=== PATIENT | female | born 1980 | race Caucasian/White ===

== ENCOUNTER 2025-01-24 10:16 | Outpatient (CLI) | payer MEDICARE, SELFPAY ==
--- NOTE | ~2025-01-24 | MM_ITS ---
EXAMINATION: MM screening dimitry BI w alejandro HISTORY: Screening TECHNIQUE: Craniocaudal and mediolateral oblique 3-D tomosynthesis images were obtained and synthetic 2-D images were generated. CAD analysis was submitted and interpreted. COMPARISON: No prior mammogram is available for comparison at this institution. BREAST PARENCHYMAL COMPOSITION: Dense: The breasts are extremely dense, which lowers the sensitivity of mammography. FINDINGS: There is no evidence of suspicious mass, calcification, or architectural distortion to sugg est malignancy in either breast. There has been no suspicious interval change. IMPRESSION: 1. No mammographic evidence of malignancy. 2. Recommend routine screening mammography in one year. BI-RADS Category 1: Negative Reviewed, dictated and finalized at location B.
--- OUTSIDE RECORDS SUMMARY | 2025-01-24 11:51 | XMS_ITS | Patient Health Record ---
Author Organization [facility] Address [address] [place] [address] Care Team Providers Care Sand Cutter Name Role Phone Daryl Densonolas Primary Care Provider Noemi Willingham Unavailable [phone] Allergies Allergen (clinical drug ingredient) Drug/Non Drug Allergy documented on EMR Reaction Allergy Type Onset Date Status SULFA rash Drug Allergy Active Results Component Value Reference Range Notes Hemoglobin A1c* Reviewed date:04/14/2024 03:23:00 PM Interpretation: Performing Lab:[facility], [address] [facility], Phone - [phone], Director - Manjit Notes/Report: Hemoglobin A1c 5.7 4.8-5.6 % . Prediabetes: 5.7 - 6.4 Diabetes: >6.4 Glycemic control for adults with diabetes: <7.0 CBC With Differential/Platel et* Reviewed date:04/14/2024 03:23:00 PM Interpretation: Performing Lab:[facility], [address] [facility], Phone - [phone], Director - Manjit Notes/Report: WBC 5.7 3.4-10.8 x10E3/uL RBC 4.56 3.77-5.28 x10E6/uL Hemoglobin 12.7 11.1-15.9 g/dL Hematocrit 39.2 34.0-46.6 % MCV 86 79-97 fL MCH 27.9 26.6-33.0 pg MCHC 32.4 31.5-35.7 g/dL RDW 14.0 11.7-15.4 % Platelets 270 150-450 x10E3/uL Neutrophils 66 Not Estab. % Lymphs 20 Not Estab. % Monocytes 8 Not Estab. % Eos 5 Not Estab. % Basos 1 Not Estab. % Neutrophils (Absolute) 3.7 1.4-7.0 x10E3/uL Lymphs (Absolute) 1.1 0.7-3.1 x10E3/uL Monocytes(Absolute) 0.5 0.1-0.9 x10E3/uL Eos (Absolute) 0.3 0.0-0.4 x10E3/uL Baso (Absolute) 0.1 0.0-0.2 x10E3/uL Immature Granulocytes 0 Not Estab. % Immature Grans (Abs) 0.0 0.0-0.1 x10E3/uL CMP 14 Comprehensive Metabol ic Panel* Reviewed date:04/14/2024 03:23:00 PM Interpretation: Performing Lab:[facility] [place], [address] [facility], Phone - [phone], Director - Manjit Notes/Report: Glucose 83 70-99 mg/dL BUN 15 6-24 mg/dL Creatinine 0.76 0.57-1.00 mg/dL eGFR 100 >59 mL/min/1.73 BUN/Creatinine Ratio 20 9-23 Sodium 139 134-144 mmol/L Potassium 4.2 3.5-5.2 mmol/L Chloride 104 96-106 mmol/L Carbon Dioxide, Total 22 20-29 mmol/L Calcium 9.4 8.7-10.2 mg/dL Protein, Total 7.0 6.0-8.5 g/dL Albumin 4.2 3.9-4.9 g/dL Globulin, Total 2.8 1.5-4.5 g/dL A/G Ratio 1.5 1.2-2.2 Bilirubin, Total 0.5 0.0-1.2 mg/dL Alkaline Phosphatase 109 44-121 IU/L AST (SGOT) 9 0-40 IU/L ALT (SGPT) 11 0-32 IU/L TSH+Free T4* Reviewed date:04/14/2024 03:23:00 PM Interpretation: Performing Lab:[facility] [place], [address] [facility], Phone - [phone], Director - PhDKayla Notes/Report: TSH 0.997 0.450-4.500 uIU/mL T4,Free(Direct) 1.02 0.82-1.77 ng/dL Lipid Panel* Reviewed date:04/14/2024 03:23:00 PM Interpretation: Performing Lab:[facility] [place], [address] [facility], [place], Phone - [phone], Director - Manjit Notes/Report: Cholesterol, Total 185 100-199 mg/dL Triglycerides 54 0-149 mg/dL HDL Cholesterol 45 >39 mg/dL VLDL Cholesterol Wilmer 10 5-40 mg/dL LDL Chol Calc ([facility]) 130 0-99 mg/dL Reason For Referral No Information Medications Medication SIG (Take, Route, Frequency, Duration) Notes Start Date End Date Status Escitalopram Oxalate 20 MG Take 1 tablet by mouth once daily for 90 Active Flonase 50 MCG/ACT 1 spray in each nostril Nasally Once a day for 30 day(s) 09/11/2021 Not-Taking Colace 100 MG 1 capsule as needed Orally Once a day for 30 day(s) 09/24/2017 Not-Taking Antihistamine Active Immunizations Vaccine Route Administration Date Status Comme nts FLU VAC NO PRSV 4VAL 6 mo+ IM Intramuscular 09/11/2021 Administered PT [employer] Flu vaccine no Preserv 3 and > Unknown 08/04/2017 Administered Received documentation that pt received Fluzone and TDap on 08/04/17. See pt documents. Tdap Unknown 08/04/2017 Administered Received documentation that pt received Fluzone and TDap on 08/04/17. See pt documents. Social History Tobacco Use: Social History Observation Description Date Details (start date - stop date) Never Smoker NA - NA Sex Assigned At : Social History Observation Description Sex Assigned At Female Dont use, Tobacco Use/Smoking Question Answer Notes Are you a nonsmoker Tobacco Control (Standard) Question Answer Notes Tobacco use: Nonsmoker Problems Problem Type SNOMED Code ICD Code Onset Dates Problem Status W/U Status Risk Notes Problem 798155972 Developmental delay (R62.50) Active confirmed Problem 71536247 Depression, unspecified depression type (F32.9) 6 Active confirmed Problem 215860191 Vaginal bleeding (N93.9) Active confirmed Problem 448984521700828 Obesity (BMI 30.0-34.9) (E66.9) Active confirmed Problem 37963788 Constipation, unspecified constipation type (K59.00) Active confirmed Problem 535189990 Abnormal mammogram of left breast (R92.8) Active confirmed Vital Signs Heart Rate 70 /min 05/17/2024 Temperature 98.4 degrees Fahrenheit 05/17/2024 Respiratory Rate 16 /min 05/17/2024 Blood pressure diastolic 86 mm Hg 05/17/2024 Oximetry 98 % 05/17/2024 Height 58.25 in 05/17/2024 Blood pressure systolic 110 mm Hg 05/17/2024 Weight 149 lb 4 oz lbs 05/17/2024 BMI 30.92 kg/m2 05/17/2024 Encounters Encounter Location Date Provider Diagnosis [address] [place] [address] 04/12/2024 Xander Denson Screening for metabolic disorder Z13.228 ; Prediabetes R73.03 ; Screening for deficiency anemia Z13.0 and Lipid screening Z13.[address] [place] [address] 04/12/2024 Xander Denson Wellness examination Z00.00 ; Prediabetes R73.03 ; Screening for deficiency anemia Z13.0 ; Screening for metabolic disorder Z13.228 ; Lipid screening Z13.220 ; Obesity (BMI 30.0-34.9) E66.9 and Nutritional counseling Z71.3 [address] [place] [address] 05/17/2024 Noemi Willingham Adult general medical examination Z00.00 and Nutritional counseling Z71.3 Assessments Encounter Date Diagnosis (ICD Code) Assessment Notes Treatment Notes Treatment Clinical Notes Section Notes 04/12/2024 Wellness examination (ICD-10 - Z00.00) 04/12/2024 Prediabetes (ICD-10 - R73.03) 04/12/2024 Screening for metabolic disorder (ICD-10 - Z13.228) 05/17/2024 Adult general medical examination (ICD-10 - Z00.00) Medically cleared to participate in special [employer] without restriction 05/17/2024 Nutritional counseling (ICD-10 - Z71.3) 04/12/2024 Screening for deficiency anemia (ICD-10 - Z13.0) 04/12/2024 Prediabetes (ICD-10 - R73.03) 04/12/2024 Screening for metabolic disorder (ICD-10 - Z13.228) 04/12/2024 Screening for deficiency anemia (ICD-10 - Z13.0) 04/12/2024 Lipid screening (ICD-10 - Z13.220) 04/12/2024 Lipid screening (ICD-10 - Z13.220) 04/12/2024 Obesity (BMI 30.0-34.9) (ICD-10 - E66.9) 04/12/2024 Nutritional counseling (ICD-10 - Z71.3) Plan Of Treatment No Information Insurance Providers Payer Name Payer Address Payer Phone Subscriber Number Group Number Insured Name Patient Relationship to Insured Coverage Start Date Coverage End Date [facility] Attn Claims Department [address] [place] [address] [phone] [id number] LeGate, Raquel Self - patient is the insured 7 3 MEDICARE PART A [address] [place] [address] [id number] LeGate, Raquel Self - patient is the insured [address] [place] [address] [id number] LeGate, Raquel Self - patient is the insured 3 [facility] Attn Claims Department [address] [place] [address] [id number] LeGate, Raquel Self - patient is the insured 0 3 Medical (General) History Medical History History ICD Code mild intelectual disability Depression, unspecified depression type Developmental delay Constipation, unspecified constipation t ype Obesity (BMI 30.0-34.9) History of partial hysterectomy Z90.711 Surgical History Surgery Date(Month/Year) PARTIAL HYSTERECTOMY 2012 Hospitalization History Reason Date(Month/Year) Depression in high school [facility] - depression in high school
--- OUTSIDE RECORDS SUMMARY | 2025-01-24 11:51 | XMS_ITS ---
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 Medications Medication SIG (Take, Route, Frequency, Duration) Notes Start Date End Date Status Flonase 50 MCG/ACT 1 spray in each nostril Nasally Once a day for 30 day(s) 09/11/2021 Not-Taking Escitalopram Oxalate 20 MG Take 1 tablet by mouth once daily for 90 Active Colace 100 MG 1 capsule as needed Orally Once a day for 30 day(s) 09/24/2017 Not-Taking Antihistamine Active Social History Tobacco Use: Social History Observation Description Date Details (start date - stop date) Never Smoker NA - NA Sex Assigned At : Social History Observation Description Sex Assigned At Female Tobacco Control (Standard) Question Answer Notes Tobacco use: Nonsmoker Vital Signs Weight 149 lb 4 oz lbs 05/17/2024 Height 58.25 in 05/17/2024 BMI 30.92 kg/m2 05/17/2024 Blood pressure systolic 110 mm Hg 05/17/20 24 Blood pressure diastolic 86 mm Hg 024 Heart Rate 70 /min 05/17/2024 Oximetry 98 % 05/17/2024 Temperature 98.4 degrees Fahrenheit 07/09/20 24 Respiratory Rate 16 /min 05/17/2024 Encounters Encounter Location Date Provider Diagnosis [facility] [address] [place] [address] 05/17/2024 Noemi Willingham Adult general medical examination Z00.00 and Nutritional counseling Z71.3 Assessments Encounter Date Diagnosis (ICD Code) Assessment Notes Treatment Notes Treatment Clinical Notes Section Notes 05/17/2024 Adult general medical examination (ICD-10 - Z00.00) Medically cleared to participate in special [employer] without restriction 05/17/2024 Nutritional counseling (ICD-10 - Z71.3) Plan Of Treatment Treatment Notes Assessment Notes Adult general medical examination Medica lly cleared to participate in special [employer] without restriction Next Appt Details Follow Up: prn, Reason: Progress Notes * Raquel ROGERSDOB:1980 (43 yo F)Acc No.[id number]:05/17/2024 Patient: Bernabe AIDATanika QUEZADAcy Provider: Shukri Willingham APRN :1980 A ge:43 Y S ex:Female Date:05/17/2024 Address:[address] [place], [place] [id number] Pcp:Xander Denson Subjective: * Chief Complaints: * s ees Mauro--needs physical for special [employer] * HPI: D epression Screening: PHQ-9 L ittle interest or pleasure in doing things N ot at all, F eeling down, depressed, or hopeless N ot at all, T rouble falling or staying asleep, or sleeping too much N ot at all, F eeling tired or having little energy N ot at all, P oor appetite or overeating N ot at all, F eeling bad about yourself or that you are a failure, or have let yourself or your family down N ot at all, T rouble concentrating on things, such as reading the newspaper or watching television N ot at all, M oving or speaking so slowly that other people could have noticed; or the opposite, being so fidgety or restless that you have been moving around a lot more than usual N ot at all, T houghts that you would be better off or of hurting yourself in some way N ot at all, T otal Score 0 . I ntervention D epression Screening Findings N egative. S creening: Cass Suicide Severity Rating Scale (LF) D o you want to initiate with S creener form, 1 . Wish to be : Have you wished you were or wished you could go to sleep and not wake up? N o, 2 . Suicidal Thoughts: Have you actually had any thoughts of killing yourself? N o, 6 . Suicide Behaviour: Have you ever done anything,started to do anything, or prepared to end your life? N o, I nterpretation: L ow Risk. S ummary: 43 year old present for physical for physical to compete in [employer]. Pt. denies CP, SOB. No restrictions noted on PE that would prevent patient from participating in Special [employer]. Vision exam attempted with both Alphabet and picture card, vision for both attmepts 20/200 left and right eyes with corrective glasses. Pt. and helper Bernadette were advised to f/u with Oil Well Service Operator for thorough vision exam. P reventative Health and Wellness follow-up: Action Plans for Clinical Quality Measures: C ervical Cancer Screening: D iscussed need for cervical cancer screening. Patient declined.. . C SSRS Interpretation and Follow Up Plan: CSSRS Interpretation and Follow Up Plan. CSSRS Interpretation and Follow Up Plan C SSRS Screen documented using SF Y es, M oderate or High risk requires selection of a follow up plan C SSRS No/Low: intervention not needed at this time. * ROS: G eneral/Constitutional: Denies C hange in appetite. D enies C hills. D enies F atigue. D enies F ever. D enies H eadache. D enies W eight loss.? R espiratory: Denies D yspnea. C ardiovascular: Denies E cornelius. D enies C hest pain. D enies?Claudication. G astrointestinal: Denies A bdominal pain. A dmits C onstipation. D enies N ausea. G enitourinary: urinary problems Denies. M usculoskeletal: Patient denies m usculoskeletal concerns. S kin: Denies R niels. * Medical History: * Surgical History: P ARTIAL HYSTERECTOMY 2012 * Hospitalization/Major Diagno stic Procedure: [facility] - depression in high schoolDepression in high school * Family History: F ather: alive. M other: alive. 2 sister(s) - healthy. . Mom is diagnosed with Schizophrenia and client does not have any contact with her. paternal grandfather - diabetes. * Social History: P rimary Social History: L iving Arrangement L iving Arrangement: I ndependent Living, I s this a supportive environment? Y es. A lcohol Use A lcohol Use Frequency: N ever. I llicit Substance Usage I llicit Substance Usage: N o. E mployment Status E mployment Status:?Employed [employer]. T obacco Use: T obacco Control (Standard) T obacco use: N onsmoker. * Medications: T akingAntihistamine Escitalopram Oxalate 20 MG Tablet Take 1 tablet by mouth once daily Taking Antihistamine Taking Escitalopram Oxalate 20 MG Tablet Take 1 tablet by mouth once daily Not-TakingColace 100 MG Capsule 1 capsule as needed Orally Once a day Flonase 50 MCG/ACT Suspension 1 spray in each nostril Nasally Once a day Medication List reviewed and reconciled with the patientNot-Taking Colace 100 MG Capsule 1 capsule as needed Orally Once a day Not-Taking Flonase 50 MCG/ACT Suspension 1 spray in each nostril Nasally Once a day Medication List reviewed and reconciled with the patient * Allergies: S ULFA: rash - Allergyno[Allergies Verified] Objective: * Vitals: I nitials: hp, Wt:149 lb 4 oz, Ht:58.25, BMI:30.92, BP:110/86, HR:70, Oxygen sat %:98, Temp:98.4, RR:16, LMP: hysto. * Examination: G eneral Examination: GENERAL APPEARANCE: a lert, oriented, well developed, well nourished, in no acute distress, calm and relaxed, cooperative. EYES: P ERRLA, sclera and conjunctiva clear. EARS a uditory canal clear, tympanic membrane intact, clear, light reflex present. NOSE: n gian patent, no lesions, septum intact. ORAL CAVITY: m ucosa moist. THROAT: n o erythema, no exudate, pharynx normal. NECK/THYROID: n o cervical lymphadenopathy, no thyromegaly.? LYMPH NODES: n o lymphadenopathy. SKIN: w arm and dry, no rashes. HEART: r egular rate and rhythm, no murmurs. LUNGS: r espirations regular and easy, clear to auscultation bilaterally. ABDOMEN: b owel sounds present, soft, nontender, nondistended, no masses palpable, no organomegaly . MUSCULOSKELETAL: n o joint deformity, swelling, redness, or warmth, no joint pain, erythema, edema, KYM upper and lower extremities. PERIPHERAL PULSES: 2 + radial. NEUROLOGIC: c ranial nerves 2-12 grossly intact, gait normal, deep tendon reflexes 2+ symmetrical, no tremor, able to follows direction, speech is clear, face is symmetrical. Assessment: * Assessment: 1. A dult general medical examination - Z00.00 (Primary) 2 . N utritional counseling - Z71.3 Plan: * Treatment: * Recommended Wellness and Pre vention Guidelines: * S tatus A lert L ast Done N ext Due A ction Taken N ONCOMPLIANT A lcohol use screening - 0 05/17/2024 - N ONCOMPLIANT A llergy List Verification - 0 05/17/2024 - N ONCOMPLIANT B reast cancer screening 0 11/14/2021 0 05/17/2024 - N ONCOMPLIANT C ervical cancer screening 0 12/21/2018 0 05/17/2024 - N ONCOMPLIANT H IV screening - 0 05/17/2024 - * Procedure Codes: 3 008F BODY MASS INDEX [id number] MEDICAL NUTRITION, INDIV, [id number] TOBACCO NON-USER * Preventive Medicine: Counseling: C are goal follow-up plan: B LA management provided Y Maura sam Normal BMI Follow-up L ifestyle education regarding diet. * Follow Up: p rn * * Sign off status: Completed true * Provider: Shukri Willingham APRN Date: 0 05/17/2024 Generated for Radha fischer/Crispin/eTsuleimanitting on: 0 01/24/2025 11:51 AM CDT History and Physical Notes * HPI (History of Present Illness) Category Sub-Category Detail Notes Category Not es Depression Screening PHQ-9 Little inte rest or pleasure in doing things: Not at all Feeling down, depressed, or hopeless: No t at all Trouble falling or staying asleep, or sl eeping too much: Not at all Feeling tired or having little energy: N ot at all Poor appetite or overeating: Not at all Feeling bad about yourself o r that you are a failure, or have let yourself or your family down: Not at all Trouble concentrating on thi ngs, such as reading the newspaper or watching television: Not at all Moving or speaking so slowly that other people could have noticed; or the opposite, being so fidgety or restless that you have been moving around a lot more than usual: Not at all Thoughts that you would be b tre off or of hurting yourself in some way: Not at all Total Score: 0 Intervention Depression Screening Findings: N egative Summary 43 year old present for physical for physical to compete in [employer]. Pt. denies CP, SOB. No restrictions noted on PE that would prevent patient from participating in [employer]. Vision exam attempted with both Alphabet and picture card, vision for both attmepts 20/200 left and right eyes with corrective glasses. Pt. and helper Bernadette were advised to f/u with [employer] Service Operator for thorough vision exam. Screening Cass Suicide Severity Rating Scale (LF) Do you want to initiate with: Screener form 1. Wish to be : Have you wished you were or wished you could go to sleep and not wake up?: No 2. Suicidal Thoughts: Have you actually had any thoughts of killing yourself?: No 6. Suicide Behavior Question: Have you ever done anything,started to do anything, or prepared to end your life?: No Interpretation:: Low Risk Do Not Use CSSRS Interpretation and Follow Up Plan CSSRS Interpretation and Follow Up Plan CSSRS Screen documented using SF: Yes Moderate or High risk requir es selection of a follow up plan: CSSRS No/Low: intervention not needed at this time Preventative Health and Wellness follow-up Action Plans for Clinical Quality Measures: Cervical Cancer Screening:: Discussed need for cervical cancer screening. Patient declined. . Examination Category Sub-Category Detail Notes Category Not es General Examination GENERAL APPEARANCE: alert, o riented, well developed, well nourished, in no acute distress, calm and relaxed, cooperative EYES: PERRLA, sclera and c onjunctiva clear EARS auditory canal clear , tympanic membrane intact, clear, light reflex present NOSE: nares patent, no les ions, septum intact THROAT: no erythema, no exud ate, pharynx normal NECK/THYROID: no cervical lymphade nopathy, no thyromegaly HEART: regular rate and rhy thm, no murmurs LUNGS: respirations regular and easy, clear to auscultation bilaterally ABDOMEN: bowel sounds present , soft, nontender, nondistended, no masses palpable, no organomegaly NEUROLOGIC: cranial nerves 2-12 grossly intact, gait normal, deep tendon reflexes 2+ symmetrical, no tremor, able to follows direction, speech is clear, face is symmetrical SKIN: warm and dry, no devin hes PERIPHERAL PULSES: 2+ radial MUSCULOSKELETAL: no joint deformity, swelling, redness, or warmth, no joint pain, erythema, edema, KYM upper and lower extremities LYMPH NODES: no lymphadenopathy ORAL CAVITY: mucosa moist
--- OUTSIDE RECORDS SUMMARY | 2025-01-24 11:51 | XMS_ITS | Clinical Summary ---
Author Organization [facility] Address [address] [place] [address] Care Team Providers Care Sleeve Ironer Name Role Phone Amelia Holloway RN Primary Care Provider Noel salazar Source Comments [facility],non-owned Affiliates and Associated Physician Practices is amultiple site organization consisting of ambulatory clinics and hospital sitesin [place], [place], [place] and [place]. This disclosure is being madepursuant to the Care Everywhere program and may not contain all information available regarding this patient. Last updated 18.[facility] Allergies Active Allergy Reactions Criticality Noted Date Comments Sulfa Drugs 12/18/2016 Medications * Be aware that medications may not be up to date on this document. Alwaysverify current medications with the patient. Medication Sig Dispensed Refills Start Date End Date Status escitalopram (LEXAPRO) 20 MG tablet Take 20 mg by mouth once daily Active fluticasone propionate (FLONASE) 50 MCG/ACT nasal sprayIndications:Acut e URI [place] 1 [place] into each nostril 2 times daily 1 Bottle 12/18/2016 Active Social History Tobacco Use Types Packs/Day Years Used Date Smoking Tobacco: Never Sex and Gender Information Value Date Recorded Sex Assigned at Not on file Gender Identity Not on file Sexual Orientation Not on file Last Filed Vital Signs Vital Sign Reading Time Taken Comments Blood Pressure 110/62 12/23/2016 5:13 PM [employer] Pulse 68 12/23/2016 5:13 PM [employer] Temperature 37 C (98.6 F) 12/23/2016 5:13 PM [employer] Respiratory Rate 16 12/23/2016 5:13 PM [employer] Oxygen Saturation 94% 12/23/2016 5:13 PM [employer] Inhaled Oxygen Concentration - - Weight 64.4 kg (142 lb) 12/23/2016 5:13 PM [employer] Height 147.3 cm (4' 10 ) 12/23/2016 5:13 PM [employer] Body Mass Index 29.68 12/23/2016 5:13 PM [employer] Plan of Treatment Health Maintenance Due Date Last Done Comments LIPID TESTING 1980 MAMMOGRAM 1980 HIV SCREENING 1996 HEPATITIS C SCREENING 08/28/1999 DTAP/TDAP/TD VACCINES (1 - Tdap) 2000 HEPATITIS B VACCINE (1 of 3 - 19+ 3-dose series) 2000 COVID-19 VACCINE (1 - 2023-2 5 season) 2024 INFLUENZA VACCINE (#1) 2024 DEPRESSION SCREENING 11/09/2024 ZOSTER VACCINE (1 of 2) 2031 HIB VACCINE Aged Out No longer eligi ble based on patient's age to complete this topic HPV VACCINE Aged Out No longer eligi ble based on patient's age to complete this topic MENINGOCOCCAL (Group B) VACC INE SHARED DECISION-MAKING Aged Out No longer eligibl e based on patient's age to complete this topic MENINGOCOCCAL GROUPS A/C/Y/W VACCINE Aged Out No longer eligible b ased on patient's age to complete this topic PNEUMOCOCCAL VACCINE Aged Out No long er eligible based on patient's age to complete this topic Care Teams Sleeve Ironer Relationship Specialty Start Date End Date Amelia Holloway, RN PCP - General 12/18/16
--- OUTSIDE RECORDS SUMMARY | 2025-01-24 11:51 | XMS_ITS ---
Author Organization [facility] Address [address] [place] [address] Care Team Providers Care Wardrobe Specialty Worker Name Role Phone Xander Denson Primary Care Provider [phone] Results Component Value Reference Range Notes Hemoglobin A1c* Reviewed date:04/14/2024 03:23:00 PM Interpretation: Performing Lab:[facility], [address] [facility], Phone - [phone], Director - [facility] Notes/Report: Hemoglobin A1c 5.7 4.8-5.6 % . Prediabetes: 5.7 - 6.4 Diabetes: >6.4 Glycemic control for adults with diabetes: <7.0 CBC With Differential/Platel et* Reviewed date:04/14/2024 03:23:00 PM Interpretation: Performing Lab:[facility], [address] [facility], Phone - [phone], Director - [facility] Notes/Report: WBC 5.7 3.4-10.8 x10E3/uL RBC 4.56 [...] % Immature Grans (Abs) 0.0 0.0-0.1 x10E3/uL TSH+Free T4* Reviewed date:04/14/2024 03:23:00 PM Interpretation: Performing Lab:[facility] [address], Phone - [phone], Director - [facility] Notes/Report: TSH 0.997 0.450-4.500 uIU/mL T4,Free(Direct) 1.02 0.82-1.77 ng/dL Lipid Panel* Reviewed date:04/14/2024 03:23:00 PM Interpretation: Performing Lab:[facility] [place], [address] [place] [address], Phone - [phone], Director - [facility] Notes/Report: Cholesterol, Total 185 100-199 mg/dL Triglycerides 54 0-149 mg/dL HDL Cholesterol 45 >39 mg/dL VLDL Cholesterol Wilmer 10 5-40 mg/dL LDL Chol Calc (NIH) 130 0-99 mg/dL CMP 14 Comprehensive Metabol ic Panel* Reviewed date:04/14/2024 03:23:00 PM Interpretation: Performing Lab:[facility] [place], [address] [facility], Phone - [phone], Director - [facility] Notes/Report: Glucose 83 70-99 mg/dL BUN 15 [...] 0-40 IU/L ALT (SGPT) 11 0-32 IU/L Social History Sex Assigned At : Social History Observation Description Sex Assigned At Female Encounters Encounter Location Date Provider Diagnosis [address] [address] 04/12/2024 Xander Denson Screening for metabolic disorder Z13.228 ; Prediabetes R73.03 ; Screening for deficiency anemia Z13.0 and Lipid screening Z13.220 Assessments Encounter Date Diagnosis (ICD Code) Assessment Notes Treatment Notes Treatment Clinical Notes Section Notes 04/12/2024 Screening for metabolic disorder (ICD-10 - Z13.228) 04/12/2024 Prediabetes (ICD-10 - R73.03) 04/12/2024 Screening for deficiency anemia (ICD-10 - Z13.0) 04/12/2024 Lipid screening (ICD-10 - Z13.220) Plan Of Treatment No Information Progress Notes * Raquel ROGERSDOB:1980 (44 yo F)Acc No.[id number]:04/12/2024 UNLOCKED PROGRESS NOTE Patient: Raquel MATTHEWS Provider: Ramírez Denson, MSN, AGPCNP-BC :1980 A ge:43 Y S ex:Female Date:04/12/2024 Address:[facility] [address] [place], [address] Subjective: * Chief Complaints: * * Medical History: Objective: * Vitals: Assessment: * Assessment: 1. S creening for metabolic disorder - Z13.228 2 . P rediabetes - R73.03? 3. S creening for deficiency anemia - Z13.0 4 . L ipid screening - Z13.220 Plan: * Treatment: 2. P rediabetes L AB: Hemoglobin A1c* (Collection Date & Time - 04/12/2024) 3. S creening for deficiency anemia L AB: CBC With Differential/Platelet* (Collection Date & Time - 04/12/2024) 4. L ipid screening L AB: Lipid Panel* (Collection Date & Time - 04/12/2024) * * Electronic signature of Daryl Denson , BULL GANG WORKER, [phone] on 01/24/2025 at 11:51 AM CDT Sign off status: Pending * Provider: Ramírez Denson, MSN, AGPCNP-BC Date: 0 04/12/2024 Generated for Printing/Faxing/eTransmitting on: 0 01/24/2025 11:51 AM CDT
--- OUTSIDE RECORDS SUMMARY | 2025-01-24 11:51 | XMS_ITS | Clinical Summary ---
Author Organization [facility] Address [facility] [place] [address] Care Team Providers Care Pie Bottomer Name Role Phone None, Provider MD Primary Care Provider Unavaila ble Allergies Active Allergy Reactions Criticality Noted Date Comments Sulfamethoxazole-Trimethoprim Rash Low 2015 Medications escitalopram 20 MG tablet Take 20 mg by mouth daily. 1 07/14/2019 Active Social History Tobacco Use Types Packs/Day Years Used Date Smoking Tobacco: Never Smokeless Tobacco: Never Comments No Sex and Gender Information Value Date Recorded Sex Assigned at Not on file Legal Sex Female 8:12 PM CDT Gender Identity Not on file Sexual Orientation Not on file Last Filed Vital Signs Vital Sign Reading Time Taken Comments Blood Pressure 134/72 08/01/2019 4:25 PM CDT Pulse 66 08/01/2019 4:25 PM CDT Temperature 37.3 C (99.2 F) 08/01/2019 3:26 PM CDT Respiratory Rate 16 08/01/2019 4:25 PM CDT Oxygen Saturation 99% 08/01/2019 4:25 PM CDT Inhaled Oxygen Concentration - - Weight 65.8 kg (145 lb) 08/01/2019 3:26 PM CDT Height 147.3 cm (4' 10 ) 08/01/2019 3:26 PM CDT Body Mass Index 30.31 08/01/2019 3:26 PM CDT Plan of Treatment Health Maintenance Due Date Last Done Comments Annual Physical 1984 Hepatitis C 1999 Hepatitis B Vaccines (1 of 3 - 19+ 3-dose series) 2000 DTaP, Tdap and Td Vaccines ( 2 - Td or Tdap) 03/01/2019 03/01/2009 Mammogram Screening 2021 11/20/2015 COVID-19 Vaccine (1 - 2023-2 5 season) 2024 Influenza Adult (#1) 2024 Pneumococcal Vaccine: Pediat rics (0 to 5 Years) and At-Risk Patients (6 to 64 Years) Aged Out 03/01/2009 No longer eligi ble based on patient's age to complete this topic HPV Vaccines Aged Out No longer eligi ble based on patient's age to complete this topic Meningococcal B Vaccine Aged Out No l onger eligible based on patient's age to complete this topic Meningococcal Vaccine Aged Out No oj beulah eligible based on patient's age to complete this topic RSV Immunizations Under 20 Months Aged Out No longer eligible based on patient's age to complete this topic Procedures Procedure Name Priority Date/Time Associated Diagnosis Comments MG DIAGNOSTIC LAKESHIA DIGI Routine 11/20/2015 3:28 PM SAP BPC ARCHITECT from Last 3 Months or Most Recently Relevant to Health Maintenance Results * MG DIAGNOSTIC LAKESHIA DIGI (11/20/2015 3:28 PM SAP BPC ARCHITECT) Anatomical Region Laterality Modality Breast Bilateral Mammography 11/20/2015 3:28 PM SAP BPC ARCHITECT 11/20/2015 3:28 PM SAP BPC ARCHITECT Narrative 11/22/2015 10:11 AM SAP BPC ARCHITECT AQUILES ROGERS MD: YAYO MCCONNELL ACCT: [id number] ADMIT/SERVICE DATE: 11/20/15 DISCHARGE DATE: : 1980 PT TYPE: REG CLI SEX: F ORD SITE: [facility] STUDY DATE REPORT # ORDER # EXT ORDER ID 11/20/15 [id number] PROCEDURE CODE PROCEDURE DESCRIPTION DXMAMDIGBI MG DIAGNOSTIC MAMMO DIGITAL BI CHART DOCUMENT DIVISION OF RADIOLOGY ACCESSION # EXAM DATE EXAM DESCRIPTION [id number] 11/20/2015 MG DIAGNOSTIC MAMMO DIGITAL BI IMAGING STUDIES: BILATERAL DIAGNOSTIC MAMMOGRAM 11/20/2015 COMPARISON STUDIES: NO PREVIOUS AVAILABLE CLINICAL HISTORY: ABNORMAL CONTOUR RIGHT BREAST. TWO SKIN SORES ON THE LEFT BREAST. BILATERAL BREAST PAIN. BASELINE EXAM. DEVELOPMENTAL DELAY. FINDINGS: BILATERAL CC, MLO, ML AND SPOT COMPRESSION VIEWS OF THE RIGHT BREAST IN THE CC AND MLO PROJECTIONS OBTAINED. MODERATELY DENSE RESIDUAL FIBROGLANDULAR PARENCHYMA WITHOUT EVIDENCE OF ARCHITECTURAL DISTORTION, SKIN THICKENING, NIPPLE RETRACTION OR SUSPICIOUS CLUSTER OF MICROCALCIFICATIONS. NO UNDERLYING LESIONS NOTED WHERE THE SKIN MARKERS WERE PLACED IDENTIFYING THE SKIN SORES. ULTRASOUND EXAMINATION PERFORMED THE SAME DAY DEMONSTRATED NO UNDERLYING SUSPICIOUS SOLID OR CYSTIC LESIONS. IMPRESSION: BI-RADS CATEGORY 2. SCREEN MAMMOGRAPHY ACCORDING TO PATIENT'S AGE PER PROTOCOL RECOMMENDED. SA MAMMOGRAM CLASSIFICATION BI-RADS CATEGORY 0-NEED ADDITIONAL IMAGING EVALUATION BI-RADS CATEGORY 1-NEGATIVE BI-RADS CATEGORY 2-BENIGN FINDINGS BI-RADS CATEGORY 3-PROBABLY BENIGN FINDING-SHORT INTERVAL FOLLOW UP SUGGESTED BI-RADS CATEGORY 4-SUSPICIOUS ABNORMALITY-BIOPSY SHOULD BE CONSIDERED BI-RADS CATEGORY 5-HIGHLY SUGGESTIVE OF MALIGNANCY-APPROPRIATE ACTION SHOULD BE TAKEN A. A NEGATIVE REPORT SHOULD NOT DELAY A BIOPSY IF A DOMINANT OR CLINICALLY SUSPICIOUS MASS IS PRESENT. B. ADENOSIS AND DENSE BREASTS MAY OBSCURE AN UNDERLYING NEOPLASM. C. COMPUTER AIDED DETECTION UTILIZED IN THE INTERPRETATION OF THIS STUDY. ELECTRONICALLY SIGNED BY NERISSA PAREDES MD 11/22/2015 10:10 A MG/RC 11/20/201503:28 P 11/20/2015 05:01 P [facility] NO: [id number] DOC NO: [id number] CC: YAYO MCCONNELL NP Procedure Note Marian Santoro MD - 09/02/2018 AQUILES ROGERS ORDERING MD: YAYO MCCONNELL ANP ACCT: [id number] ADMIT/SERVICE DATE: 11/20/15 DISCHARGE DATE: : 1980 PT TYPE: REG CLI SEX: F ORD SITE: [facility] STUDY DATE REPORT # ORDER # EXT ORDER ID 11/20/15 [id number] PROCEDURE CODE PROCEDURE DESCRIPTION DXMAMDIGBI MG DIAGNOSTIC MAMMO DIGITAL BI CHART DOCUMENT DIVISION OF RADIOLOGY ACCESSION # EXAM DATE EXAM DESCRIPTION [id number] 11/20/2015 MG DIAGNOSTIC MAMMO DIGITAL BI IMAGING STUDIES: BILATERAL DIAGNOSTIC MAMMOGRAM 11/20/2015 COMPARISON STUDIES: NO PREVIOUS AVAILABLE CLINICAL HISTORY: ABNORMAL CONTOUR RIGHT BREAST. TWO SKIN SORES ON THE LEFT BREAST. BILATERAL BREAST PAIN. BASELINE EXAM. DEVELOPMENTAL DELAY. FINDINGS: BILATERAL CC, MLO, ML AND SPOT COMPRESSION VIEWS OF THE RIGHT BREAST INTHE CC AND MLO PROJECTIONS OBTAINED. MODERATELY DENSE RESIDUAL FIBROGLANDULAR PARENCHYMA WITHOUT EVIDENCE OF ARCHITECTURAL DISTORTION, SKIN THICKENING, NIPPLE RETRACTION ORSUSPICIOUS CLUSTER OF MICROCALCIFICATIONS. NO UNDERLYING LESIONS NOTED WHERE THESKIN MARKERS WERE PLACED IDENTIFYING THE SKIN SORES. ULTRASOUND EXAMINATION PERFORMED THE SAME DAY DEMONSTRATED NO UNDERLYING SUSPICIOUS SOLID OR CYSTIC LESIONS. IMPRESSION: BI-RADS CATEGORY 2. SCREEN MAMMOGRAPHY ACCORDING TO PATIENT'S AGE PER PROTOCOL RECOMMENDED. MQSA MAMMOGRAM CLASSIFICATION BI-RADS CATEGORY 0-NEED ADDITIONAL IMAGING EVALUATION BI-RADS CATEGORY 1-NEGATIVE BI-RADS CATEGORY 2-BENIGN FINDINGS BI-RADS CATEGORY 3-PROBABLY BENIGN FINDING-SHORT INTERVAL FOLLOW UP SUGGESTED BI-RADS CATEGORY 4-SUSPICIOUS ABNORMALITY-BIOPSY SHOULD BE CONSIDERED BI-RADS CATEGORY 5-HIGHLY SUGGESTIVE OF MALIGNANCY-APPROPRIATE ACTION SHOULD BE TAKEN A. A NEGATIVE REPORT SHOULD NOT DELAY A BIOPSY IF A DOMINANT ORCLINICALLY SUSPICIOUS MASS IS PRESENT. B. ADENOSIS AND DENSE BREASTS MAY OBSCURE AN UNDERLYING NEOPLASM. C. COMPUTER AIDED DETECTION UTILIZED IN THE INTERPRETATION OF THISSTUDY. 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
--- OUTSIDE RECORDS SUMMARY | 2025-01-24 11:51 | XMS_ITS ---
Author Organization [facility], [facility] Address [address] [place] [address] Care Team Providers Care Meat Wrapper Name Role Phone Xander Denson Primary Care Provider [phone] Allergies Allergen (clinical drug ingredient) Drug/Non Drug Allergy documented on EMR Reaction Allergy Type Onset Date Status SULFA rash Drug Allergy Active REASON FOR VISIT 6 month f/u Medications Medication SIG (Take, Route, Frequency, Duration) Notes Start Date End Date Status Flonase 50 MCG/ACT 1 spray in each nostril Nasally Once a day for 30 day(s) 09/11/2021 Not-Taking Antihistamine Active Colace 100 MG 1 capsule as needed Orally Once a day for 30 day(s) 09/24/2017 Not-Taking Escitalopram Oxalate 20 MG Take 1 tablet by mouth once daily for 90 Active Social History Tobacco Use: Social History Observation Description Date Details (start date - stop date) Never Smoker NA - NA Sex Assigned At : Social History Observation Description Sex Assigned At Female Tobacco Control (Standard) Question Answer Notes Tobacco use: Nonsmoker Vital Signs Weight 151 lbs 04/12/2024 Height 58.5 in 04/12/2024 BMI 31.02 kg/m2 04/12/2024 Blood pressure systolic 110 mm Hg 04/12/20 24 Blood pressure diastolic 72 mm Hg 024 Heart Rate 61 /min 04/12/2024 Oximetry 99 % 04/12/2024 Temperature 97.5 degrees Fahrenheit 04/12/20 24 Respiratory Rate 16 /min 04/12/2024 Encounters Encounter Location Date Provider Diagnosis [address] [place] [address] 04/12/2024 Xander Denson Wellness examination Z00.00 ; Prediabetes R73.03 ; Screening for deficiency anemia Z13.0 ; Screening for metabolic disorder Z13.228 ; Lipid screening Z13.220 ; Obesity (BMI 30.0-34.9) E66.9 and Nutritional counseling Z71.3 Assessments Encounter Date Diagnosis (ICD Code) Assessment Notes Treatment Notes Treatment Clinical Notes Section Notes 04/12/2024 Wellness examination (ICD-10 - Z00.00) 04/12/2024 Prediabetes (ICD-10 - R73.03) 04/12/2024 Screening for deficiency anemia (ICD-10 - Z13.0) 04/12/2024 Screening for metabolic disorder (ICD-10 - Z13.228) 04/12/2024 Lipid screening (ICD-10 - Z13.220) 04/12/2024 Obesity (BMI 30.0-34.9) (ICD-10 - E66.9) 04/12/2024 Nutritional counseling (ICD-10 - Z71.3) Plan Of Treatment Next Appt Details Follow Up: 6 Months,prn, Tarsha son: Progress Notes * Tanika ROGERSparthDOB:1980 (43 yo F)Acc No.[id number]:04/12/2024 Progress Notes Patient: Raquel MATTHEWS Provider: Ramírez Denson, MSN, AGPCNP-BC :1980 A ge:43 Y S ex:Female Date:04/12/2024 Address:[facility] [address], [address] [place], [place] [id number] 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 Denies any issues or concerns, doing well. General physical and screenings. I nterim History: Emergency room visit N o. D epression Screening: PHQ-9 L ittle interest or pleasure in doing things?Not at all F eeling down, depressed, or hopeless N ot at all T rouble falling or staying asleep, or sleeping too much N ot at all F eeling tired or having little energy N ot at all P oor appetite or overeating N ot at all F eeling bad about yourself or that you are a failure, or have let yourself or your family down N ot at all T rouble concentrating on things, such as reading the newspaper or watching television N ot at all M oving or speaking so slowly that other people could have noticed; or the opposite, being so fidgety or restless that you have been moving around a lot more than usual N ot at all T houghts that you would be better off or of hurting yourself in some way N ot at all T otal Score 0 S creening: [place] Suicide Severity Rating Scale (LF) D o you want to initiate with S creener form 1 . Wish to be : Have you wished you were or wished you could go to sleep and not wake up? N o 2 . Suicidal Thoughts: Have you actually had any thoughts of killing yourself? N o 6 . Suicide Behaviour: Have you ever done anything,started to do anything, or prepared to end your life? N o I nterpretation: L ow Risk C onstitutional: Health Literacy B ased on interaction with patient, assessed patient to have m oderate health literacy. * ROS: G eneral/Constitutional: Denies C hange in appetite. D enies C hills. D enies F ever. R espiratory: Denies D yspnea. D enies C ough. D enies W heezing. C ardiovascular: Denies E cornelius. D enies C hest pain. D enies?Claudication. G astrointestinal: Change in Stools D enies. D enies A bdominal pain.?Denies N ausea. M usculoskeletal: Patient denies a ny MSK issues. * Medical History: * Surgical History: P [...] iving Arrangement L iving Arrangement: I ndependent Living I s this a supportive environment? 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 * Examination: G eneral Examination: GENERAL APPEARANCE: w ell developed, well nourished, in no acute distress. SKIN: w arm and dry, no rashes. HEART: r egular rate and rhythm, no murmurs. LUNGS: r espirations regular and easy, clear to auscultation bilaterally. ABDOMEN: b owel sounds present, soft, nontender, nondistended, no masses palpable, no organomegaly . PSYCH: f ull range of affect/positive mood, good eye contact, speech clear, no auditory or visual hallucinations, thought content without suicidal ideation or delusions. Assessment: * Assessment: 1. W ellness examination - Z00.00 (Primary) 2 . P rediabetes - R73.03 3 . S creening for deficiency anemia - Z13.0 4 . S creening for metabolic disorder - Z13.228 5 .?Lipid screening - Z13.220 6 . O besity (BMI 30.0-34.9) - E66.9 7 . N utritional counseling - Z71.3 Plan: * Treatment: 2. S creening for deficiency anemia L AB: CBC With Differential/Platelet* (Ordered for 04/12/2024) (Collection Date & Time - 04/12/2024) 3. S creening for metabolic disorder L AB: TSH+Free T4* (Ordered for 04/12/2024) (Collection Date & Time - 04/12/2024) L AB: CMP 14 Comprehensive Metabolic Panel* (Ordered for 04/12/2024) (Collection Date & Time - 04/12/2024) 4. L ipid screening L AB: Lipid Panel* (Ordered for 04/12/2024) (Collection Date & Time - 04/12/2024) * Procedure Codes: 9 8960 SELF-MGMT EDUC & TRAIN, 1 [id number] BODY MASS INDEX [id number] MEDICAL NUTRITION, INDIV, [place] * Preventive Medicine: Counseling: C are goal follow-up plan: BMI management provided Y es Above Normal BMI Follow-up L ifestyle education regarding diet * Follow Up: 6 Months,prn * * Sign off status: Completed true * Provider: Ramírez Desnon, MSN, AGPCNP-BC Date: 0 04/12/2024 Generated for Printing/Faxing/eTransmitting on: 0 01/24/2025 11:50 AM CDT History and Physical Notes * HPI (History of Present Illness) Category Sub-Category Detail Notes Category Not es Interim History Emergency room visit No Depression Screening PHQ-9 Little inte rest or [...] way: Not at all Total Score: 0 Constitutional Health Literacy Based on interac tion with patient, assessed patient to have : moderate health literacy. Screening [place] Suicide Sev erity Rating Scale (LF) Do you want to [...] end your life?: No Interpretation:: Low Risk Examination Category Sub-Category Detail Notes Category Not es General Examination GENERAL APPEARANCE: well dev eloped, well nourished, in no acute distress HEART: regular rate and rhy thm, no murmurs LUNGS: respirations regular and easy, clear to auscultation bilaterally ABDOMEN: bowel sounds present , soft, nontender, nondistended, no masses palpable, no organomegaly SKIN: warm and dry, no devin hes PSYCH: full range of affect /positive mood, good eye contact, speech clear, no auditory or visual hallucinations, thought content without suicidal ideation or delusions
== END 2025-01-24 10:17 | disposition home or self-care (01) ==
PROVIDERS: Visit Provider Obstetrics & Gynecology
DX: Z12.31 Encounter for screening mammogram for malignant neoplasm of breast (principal)
CPT/HCPCS: 77063; 77067

== ENCOUNTER 2025-05-16 12:30 | Emergency (ER) | payer MEDICARE, MEDICAID, SELFPAY ==
[2025-05-16 12:40] VITALS: BP 131/81; PULSE 76; RESP 18; TEMP 36.9
--- NOTE | 2025-05-16 12:40 | ED.ABDPAIN ---
HPI - Abdominal Pain General Chief Complaint: Abdominal Pain Stated Complaint: HEADACHE/STOMACH PAIN/VOMITING Time Seen by Provider: 05/16/25 12:40 Source: patient Mode of arrival: ambulatory Limitations: no limitations History of Present Illness HPI narrative: Raquel is a 44-year-old developmentally disabled female patient presenting to the clinic today with complaints of headache, generalized abdominal pain/cramping and vomiting x1. She reports symptoms started this morning. No known fevers, chills, or body aches. States she is having some urinary frequency and urgency. Last bowel movement was yesterday and normal for the patient. Related Data Home Medications ?Medication ?Instructions ?Recorded ?Confirmed ?Last Taken ?Type escitalopram oxalate 20 mg tablet mg 05/16/25 Unknown History Allergies Allergy/AdvReac Type Severity Reaction Status Date / Time Sulfa (Sulfonamide Allergy Rash Verified 05/16/25 13:55 Antibiotics) Review of Systems Review of Systems: Pertinent positives per HPI. Patient denies any fever, chills, rash, headache, visual changes, dizziness, cough, shortness of breath, chest pain, palpitations, diarrhea, constipation, or any urinary issues. PMFSH Comments At the time of my signature, I reviewed and agree with the nursing past medical, surgical, social, and family history. There is no relevant family history pertinent to the patient complaint. Exam Narrative: General: Well-developed, well nourished, acute ill appearing. Head: Normocephalic, atraumatic Eyes: Pupils equally round and reactive to light bilaterally, EOM intact, sclera and conjunctive clear, no discharge, lids normal Ears: TMs intact and clear, ear canals clear, no drainage, grossly hearing normal. Nose: Nares patent, clear nasal discharge, no inflammation, no sinus tenderness. Mouth: Oral pharynx without lesions or masses, good dentition, MMM. Neck: Supple, trachea midline, no enlargement of anterior or posterior cervical nodes, no thyroid masses or goiter palpable. Cardio: Regular rate and rhythm, s1 and s2 normal, no murmur appreciated. Resp: Clear to auscultation bilaterally, no rhonchi, rales, wheezing or rubs Abdomen: Soft, pliable, bowel sounds present in all quadrants, generalized tender to palpation, no organomegly, no CVAT tenderness. Course Course Emergency Course: Portions of this record may have been created with voice recognition software. Level of Care: Express Care Visit Vital Signs Vital signs: Vital Signs Temperature 36.9 C 05/16/25 12:40 Pulse Rate 76 05/16/25 12:40 Respiratory Rate 18 05/16/25 12:40 Blood Pressure 131/81 05/16/25 12:40 Oxygen Delivery Room Air 05/16/25 12:40 Temperature 36.9 C 05/16/25 12:40 Pulse Rate 76 05/16/25 12:40 Respiratory Rate 18 05/16/25 12:40 Blood Pressure 131/81 05/16/25 12:40 Oxygen Delivery Room Air 05/16/25 12:40 Vital signs reviewed Transfer Transfered to: [facility] Transportation: Other (Private car) Transfer rationale: Generalized abdominal pain, nausea, and vomiting Accepting physician: Sami Transfer comments: Private car- NPO MDM - Abdominal Pain MDM Narrative Medical decision making narrative: At the time of visit patient is resting comfortably on the exam table. Patient appears to be nontoxic. Labs: Urinalysis positive for trace of protein. COVID and influenza testing was negative. Plan: Patient is having generalized abdominal pain, tearful, not acting appropriate per special needs child caregiver. Recommend transfer to the ER for further evaluation and caregiver and patient agree. Please like to go to [facility] emergency room. Contacted Sana physician's assistant professor of archaeology at [facility] ER report was given for continuity of care. Patient to go by private car- NPO Differential Diagnosis Differential diagnosis: Likely abdominal pain, acute appendicitis, calculus of kidney, constipation, diverticulitis, endometriosis, gastroenteritis, pancreatitis and small bowel obstruction Lab Data Labs: Lab Results 05/16/25 Range/Units 13:11 POC Urine Color Yellow POC Urine Clarity Cloudy POC Urine pH 8.5 POC Ur Specif [place] 1.020 POC Urine Protein Trace (Negative) POC Ur Glucose (UA) Negative (Negative) POC Urine Ketones Negative (Negative) POC Urine Blood Negative (Negative) POC Urine Nitrite Negative (Negative) POC Urine Bilirubin Negative (Negative) POC Urine Urobilinogen 0.2 POC U Leukocyte Esteras Negative (Negative) POC Influenza A Ag Negative (Negative) POC Influenza B Ag Negative (Negative) POC SARS CoV-2 Ag Negative (Negative) Discharge Plan Discharge Clinical Impression: Abdominal pain Qualifiers: Abdominal location: generalized Qualified Code(s): R10.84 - Generalized abdominal pain Patient Disposition: Acute Care Hospital Condition: Stable Patient Language: Citizen Of [place] Prescriptions: No Action escitalopram oxalate 20 mg tablet Follow-up/Referrals: Ziyad May MD [Primary Care Provider] - Time of Disposition: 13:22 Quality NIHSS Nursing Documentation ED NIHSS nursing documentation: reviewed/agree
[2025-05-16 13:13] LABS: EDCOVIDSCREEN Negative (Negative); EDINFLUASCREEN Negative (Negative); EDINFLUBSCREEN Negative (Negative); EDUAAPPEAR Cloudy; EDUABILI Negative (Negative); EDUABLOOD Negative (Negative); EDUACOLOR1 Yellow; EDUAGLUCOSE Negative (Negative); EDUAKETONE Negative (Negative); EDUALEUKO Negative (Negative); EDUANITRATE Negative (Negative); EDUAPH 8.5; EDUAPROTEIN Trace (Negative); EDUASPGRAVITY 1.020; EDUAUROBILI 0.2
== END 2025-05-16 13:20 | disposition short-term general hospital (02) ==
PROVIDERS: Emergency Provider Nurse Practitioner Family; PCP Internal Medicine
DX: R10.84 Generalized abdominal pain (principal); Z20.822 Contact with and (suspected) exposure to COVID-19; F32.A Depression, unspecified
CPT/HCPCS: 81003; 87426; 87804; 99212; 99213; G0463

== ENCOUNTER 2025-05-16 13:44 | Emergency (ER) | payer MEDICARE, MEDICAID, SELFPAY ==
--- NOTE | ~2025-05-16 | CT_ITS ---
EXAM: CT abdomen pelvis w con - 05/16/2025 15:25 CDT History: 44 years old Female with ABDOMINAL PAIN TECHNIQUE: Multidetector CT of the abdomen and pelvis with intravenous contrast. Coronal and sagitta l reformats were also provided for review. Automatic exposure control was used for this study. CONTRAST: 100 cc of Optiray 350 was used for this study. COMPARISON: None Available. FINDINGS: VISUALIZED CHEST: Visualized lungs are clear. ABDOMEN and PELVIS: LIVER: Within normal limits. GALLBLADDER: No calcified gallstones. BILE DUCTS: No dilatation. SPLEEN: Within normal limits. PANCREAS: Within normal limits. ADRENAL GLANDS: Within normal limits. KIDNEYS and URETERS: No hydronephrosis or hydroureter. No nephroureterolithiasis. URINARY BLADDER: Within normal limits. STOMACH and BOWEL: No abnormal bowel wall thickening. No obstruction. REPRODUCTIVE ORGANS: Within normal limits. MESENTERY/PERITONEAL CAVITY: No free fluid or pneumoperitoneum. LYMPH NODES: No abdominal or pelvic lymphadenopathy. ABDOMINAL WALL: Within normal limits. VASCULATURE: Within normal limits. MUSCULOSKELETAL: Within normal limits. IMPRESSION: No evidence of acute pathology in the abdomen and pelvis. Reviewed, dictated and finalized at location A.
--- OUTSIDE RECORDS SUMMARY | 2025-05-16 13:47 | XMS_ITS | Patient Health Record ---
Author Organization [facility] Address [address] [place] [address] Care Team Providers Care Personnel Interviewer Name Role Phone Ziyad May Primary Care Provider Noemi Willingham Unavailable [phone] Allergies Allergen (clinical drug ingredient) Drug/Non Drug Allergy documented on EMR Reaction Allergy Type Onset Date Status SULFA rash Drug Allergy Active Results Component Value Reference Range Notes Hemoglobin A1c CLIA Waived Reviewed date:02/21/2025 11:24:04 AM Interpretation: Performing Lab: Notes/Report: Hemoglobin A1c 5.5 4.0 - 6.4 % Hemoglobin A1c* Reviewed date:04/27/2025 03:51:09 PM Interpretation: Performing Lab:[facility], [address] [facility], Phone - [phone], Director - Manjit Notes/Report: Hemoglobin A1c 5.7 4.8-5.6 % . Prediabetes: 5.7 - 6.4 Diabetes: >6.4 Glycemic control for adults with diabetes: <7.0 Lipid Panel* Reviewed date:04/27/2025 03:51:09 PM Interpretation: Performing Lab:[facility], [address] [facility], Phone - [phone], Director - PhDKayla Notes/Report: Cholesterol, Total 192 100-199 mg/dL Triglycerides 57 0-149 mg/dL HDL Cholesterol 49 >39 mg/dL VLDL Cholesterol Wilmer 11 5-40 mg/dL LDL Chol Calc ([facility]) 132 0-99 mg/dL CMP 14 Comprehensive Metabol ic Panel* Reviewed date:04/27/2025 03:51:09 PM Interpretation: Performing Lab:[facility] [place], [address] [facility], [place], Phone - [phone], Director - Manjit Notes/Report: Glucose 75 70-99 mg/dL BUN 11 6-24 mg/dL Creatinine 0.79 0.57-1.00 mg/dL eGFR 95 >59 mL/min/1.73 BUN/Creatinine Ratio 14 9-23 Sodium 141 134-144 mmol/L Potassium 4.2 3.5-5.2 mmol/L Chloride 105 96-106 mmol/L Carbon Dioxide, Total 19 20-29 mmol/L Calcium 9.5 8.7-10.2 mg/dL Protein, Total 7.1 6.0-8.5 g/dL Albumin 4.3 3.9-4.9 g/dL Globulin, Total 2.8 1.5-4.5 g/dL Bilirubin, Total 0.3 0.0-1.2 mg/dL Alkaline Phosphatase 133 44-121 IU/L AST (SGOT) 18 0-40 IU/L ALT (SGPT) 14 0-32 IU/L Reason For Referral No Information Medications Medication SIG (Take, Route, Frequency, Duration) Notes Start Date End Date Status Docusate Sodium 100 MG 1 capsule as need ed Orally Once a day Active All Day Allergy 10 MG 1 tablet Orally On ce a day Active Antihistamine Not-Ta [facility] Adult Gummies - as directed Orally Active Escitalopram Oxalate 20 MG 1 tablet Oral ly Once a day; Duration: 30 days Active Flonase 50 MCG/ACT 1 spray in each nostril Nasally Once a day; Duration: 30 day(s) 09/11/2021 Not-Taking Colace 100 MG 1 capsule as needed Orally Once a day; Duration: 30 day(s) 09/24/2017 Not-Taking Immunizations Vaccine Route Administration Date Status Comme nts Tdap Unknown 08/04/2017 Administered Received documentation that pt received Fluzone and TDap on 08/04/17. See pt documents. Flu vaccine no Preserv 3 and > Unknown 08/04/2017 Administered Received documentation that pt received Fluzone and TDap on 08/04/17. See pt documents. FLU VAC NO PRSV 4VAL 6 mo+ IM Intramuscular 09/11/2021 Administered PT [employer] Social History Tobacco Use: Social History Observation Description Date Details (start date - stop date) Never Smoker NA - NA Sex Assigned At : Social History Observation Description Sex Assigned At Female Tobacco Control (Standard) Question Answer Notes Tobacco use: Nonsmoker Problems Problem Type SNOMED Code ICD Code Onset Dates Problem Status W/U Status Risk Notes Problem Hyperlipidemia (97021276) Hyperlipidemia (E78.5) Active confirmed Problem Developmental delay (086728451) Developmental delay (R62.50) Active confirmed Problem Overweight (193398083) Over weight (E66.3) Active confirmed Problem Depressive disorder (disorder) (64790939) Depression, unspecified depression type (F32.9) 10/15/20 16 Active confirmed Problem Vaginal bleeding (654546102) Vaginal bleeding (N93.9) Active confirmed Problem Obese class I (finding) (182581025654682) Obesity (BMI 30.0-34.9) (E66.9) Active confirmed Problem Constipation (92828897) Constipation, unspecified constipation type (K59.00) Active confirmed Problem Mammography abnormal (092444382) Abnormal mammogram of left breast (R92.8) Active confirmed Vital Signs Heart Rate 70 /min 04/25/2025 Temperature 98.4 degrees Fahrenheit 05/17/2024 Respiratory Rate 16 /min 04/25/2025 Oximetry 98 % 04/25/2025 Blood pressure diastolic 82 mm Hg 04/25/2025 Height 58.25 in 04/25/2025 Blood pressure systolic 118 mm Hg 04/25/2025 Weight 152.6 lbs 04/25/2025 BMI 31.62 kg/m2 04/25/2025 Encounters Encounter Location Date Provider Diagnosis [facility] [place] [address] 05/17/2024 Noemi Willingham Adult general medica l examination Z00.00 and Nutritional counseling Z71.[address] [place] [address] 02/21/2025 Ziyad May Impaired glucose tolerance R73.02 ; Hyperlipidemia E78.5 and Over weight E66.[address] [facility] [place] [address] 04/25/2025 Ziyad May Prediabetes R73.[address] [place] [address] 02/08/2025 Ziyad May [address] [place] [address] 02/10/2025 Ziyad May [address] [place] [address] 02/16/2025 Ziyad May [address] [place] [address] 02/22/2025 Ziyad May [address] [address] 02/28/2025 Ziyad May Assessments Encounter Date Diagnosis (ICD Code) Assessment Notes Treatment Notes Treatment Clinical Notes Section Notes 04/25/2025 Prediabetes (ICD-10 - R73.03) 05/17/2024 Adult general medical examination (ICD-10 - Z00.00) Medically cleared to participate in [employer] without restriction 02/21/2025 Hyperlipidemia (ICD-10 - E78.5) 02/21/2025 Impaired glucose tolerance (ICD-10 - R73.02) DISCUSSED ELIMINATING DRINKS THAT HAVE PROCESSED SUGAR, MINIMIZING FOODS WITH PROCESSED SUGAR OR FLOUR, EATING MORE FRUITS AND VEGETABLES. DISCUSSED WRAPS INSTEAD OF SANDWICHES, THIN CRUST INSTEAD OF REGULAR CRUST PIZZA, AND SUBSTITUING CHICKEN AND VEGETABLES INSTEAD OF RED MEAT. 02/21/2025 Over weight (ICD-10 - E66.3) 05/17/2024 Nutritional counseling (ICD-10 - Z71.3) Plan Of Treatment No Information Insurance Providers Payer Name Payer Address Payer Phone Subscriber Number Group Number Insured Name Patient Relationship to Insured Coverage Start Date Coverage End Date [facility] Att Claims Department [address] [place] [address] [phone] [id number] Eusebia Raquel Self - patient is the insured 7 3 MEDICARE PART A [address] [facility] [place] [address] [id number] LeGdamien Raquel Self - patient is the insured 3 MEDICAID [address] [address] [id number] Raquel Laws Self - patient is the insured 3 [facility] Attn Claims Department [address] [place] [address] [id number] Raquel Laws Self - patient is the insured 0 3 Medical (General) History Medical History History ICD Code mild intelectual disability Depression, unspecified depression type Developmental delay Constipation, unspecified constipation t ype Obesity (BMI 30.0-34.9) History of partial hysterectomy Z90.711 Surgical History Surgery Date(Month/Year) PARTIAL HYSTERECTOMY 2012 Hospitalization History Reason Date(Month/Year) Depression in high school [facility] - depression in high school
--- OUTSIDE RECORDS SUMMARY | 2025-05-16 13:47 | XMS_ITS | Continuity of Care Document ---
Author Organization [facility] Address [id number] [place] [address] [place] [address] Phone Care Team Providers Care Grab Jack Worker Name Role Phone Leeroy Greenberg DO Unavailable Unavailable Advance Directives Directive Yes / No Effective Date File Name No Information Encounters Encounter Description Practice Location Reason(s) For Visit Diagnoses Date Provider Providers Copied on Encounter [facility], [address], [place], [place], [id number], [place] tel:[phone] [facility] No Information Dionicio Castañeda. [address] [place], [address], [place]. tel: [phone] Family History Family Member Type Diagnosis Age At Onset No Information Payers Payer name Insurance type Covered green party ID Authoriza tion(s) Medicaid [facility] [id number] Social History Type Description Quantity Date Captured Comments Sex Female Smoking Status No Information Chief Complaint And Reason For Visit No Information Reason For Referral Reason For Referral No Information History Of Present Illness Encounter Date Complaint History Of Prese nt Illness No Information Functional Status Date Functional Assessmen t No Information Instructions Date Instruction Additional Infor mation No Information Assessments Type Assessment Date No Information Patient Care Teams Name Effective Dates (start - stop) Status Members No Information
[2025-05-16 13:51] VITALS: BP 136/90; PULSE 78; RESP 16; TEMP 36.6; O2SAT 100
--- NOTE | 2025-05-16 14:12 | ED_ITS ---
HPI - Abdominal Pain General Chief Complaint: Abdominal Pain Stated Complaint: headache, abdominal pain Time Seen by Provider: 05/16/25 14:12 Source: patient and RN notes reviewed Mode of arrival: ambulatory Limitations: no limitations History of Present Illness HPI narrative: 44 YEARS OLD WHITE FEMALE CAME TO THE ED COMPLAINING OF ABDOMINAL PAIN STARTED 10:00 A.M. ASSOCIATED WITH NAUSEA AND VOMITING AT LEAST TWICE. SHE DENIES ANY FEVER, CHILLS, DIARRHEA, CONSTIPATION, VAGINAL BLEEDING OR DISCHARGE. HISTORY OF DEPRESSION AND HYSTERECTOMY. Related Data Home Medications ?Medication ?Instructions ?Recorded ?Confirmed ?Last Taken ?Type escitalopram oxalate 20 mg tablet mg 05/16/25 Unknown History Allergies Allergy/AdvReac Type Severity Reaction Status Date / Time Sulfa (Sulfonamide Allergy Rash Verified 05/16/25 14:05 Antibiotics) Review of Systems 2 Review of Systems: All systems reviewed & are unremarkable except as noted in HPI and below Exam 2 Narrative: GENERAL APPEARANCE: WELL-DEVELOPED, WELL-NOURISHED SKIN: NORMAL COLOR HEAD: NORMOCEPHALIC, NONTRAUMATIC EYES: CLEAR CONJUNCTIVA ENT: OROPHARYNX NORMAL, EARS NORMAL, NOSE NORMAL NECK: SUPPLE, NONTENDER CHEST AND RESPIRATORY: AIRWAY PATENT, NO RESPIRATORY DISTRESS, NO ACCESSORY MUSCLE USE HEART: REGULAR RATE/RHYTHM ABDOMEN: SOFT, DIFFUSE LOWER ABDOMINAL TENDERNESS, NO GUARDING OR REBOUND, NO ORGANOMEGALY, QUIET BOWEL SOUNDS VASCULAR: NORMAL PERIPHERAL PULSES, NORMAL CAPILLARY REFILL. MUSCULOSKELETAL: NORMAL RANGE OF MOTION, NONTENDER BACK NEUROLOGIC: ALERT AND ORIENTED ?3, MARKETING INFORMATION ANALYST IS NORMAL TESTED, NO GROSS MOTOR DEFICIT Course Vital Signs Vital signs: Vital Signs Temperature 36.6 C 05/16/25 13:51 Pulse Rate 78 05/16/25 13:51 Respiratory Rate 16 05/16/25 13:51 Blood Pressure 136/90 05/16/25 13:51 Pulse Oximetry 100 05/16/25 13:51 Oxygen Delivery Room Air 05/16/25 13:51 Temperature 36.6 C 05/16/25 17:27 Pulse Rate 69 05/16/25 17:27 Respiratory Rate 20 05/16/25 17:27 Blood Pressure 128/78 05/16/25 17:27 Pulse Oximetry 97 05/16/25 17:27 Oxygen Delivery Room Air 05/16/25 13:51 MDM - Abdominal Pain MDM Narrative Medical decision making narrative: PATIENT CAME WITH ABDOMINAL PAIN VITAL SIGNS ARE STABLE PHYSICAL EXAMINATION CONSISTENT WITH DIFFUSE LOWER ABDOMINAL TENDERNESS NO GUARDING OR REBOUND DIFFERENTIAL DIAGNOSIS INCLUDE CONSTIPATION, URINARY TRACT INFECTION, DIVERTICULITIS, COLITIS, APPENDICITIS, CHOLECYSTITIS, URINARY TRACT INFECTION BLOOD WORKUP TODAY INCLUDES CBC, CMP, LIPASE SHOWED 11.8, OTHERWISE WITHIN NORMAL LIMIT URINALYSIS SHOWED NO ACUTE ABNORMALITIES CT ABDOMEN AND PELVIS WITH IV CONTRAST SHOWED NO ACUTE ABNORMALITIES DIAGNOSIS ABDOMINAL PAIN OF UNKNOWN ETIOLOGY THE PT WAS DISCHARGED TO HOME.THE PT,S CONDITION UPON DISCHARGE WAS FAIR,EDUCATION WAS PROVIDED TO THE PT IN REFERENCE TO THE FINAL IMPRESSION,DISCHARGE STUDY RESULTS,TREATMENT,PROGNOSIS AND NEED FOR FOLLOW UP . Differential Diagnosis Differential diagnosis: Likely other ( ABOVE) Medical Records Attestation: I reviewed the patient's medical records. Lab Data Attestation: I reviewed the patient's lab results. 05/16/25 14:39 05/16/25 14:39 Labs: Lab Results 05/16/25 Range/Units 14:39 WBC 11.8 H (4.5-10.0) K/mm3 RBC 4.03 L (4.2-5.4) M/mm3 Hgb 11.5 L (12.0-15.0) g/dL Hct 34.5 L (37.0-47.0) % MCV 85.6 (80-100) fl MCH 28.5 (26-34) pg MCHC 33.3 (32-36) g/dl RDW 13.2 (11.5-14.5) % Plt Count 289 (150-375) k/mm3 MPV 11.1 H (7.4-10.4) fl Immature Gran % (Auto) 0.5 (0-0.5) % Neut % (Auto) 86.2 H (45.5-73.1) % Lymph % (Auto) 7.6 L (18.3-44.2) % Sutter % (Auto) 4.1 (2.6-8.5) % Eos % (Auto) 0.9 (0-4.4) % Baso % (Auto) 0.7 (0.2-1.2) % Lymph # (Auto) 0.90 (0.9-3.2) K/mm3 Sutter # (Auto) 0.5 (0.1-0.6) K/mm3 Eos # (Auto) 0.1 (0-0.3) K/mm3 Baso # (Auto) 0.1 (0.0-0.1) K/mm3 Abs Immat Gran (auto) 0.06 H (0.00-0.031) K/mm3 Absolute Neuts (auto) 10.2 H (1.3-6.7) K/mm3 Absolute Nucleated RBC 0.000 (0.0-0.012) K/mm3 Nucleated RBC % 0.0 (0.0-0.2) % Sodium 137 (137-145) mmol/L Potassium 3.6 (3.4-5.0) mmol/L Chloride 105 (98-107) mmol/L Carbon Dioxide 24 (22-30) mmol/L Anion Gap 8 (4-12) mmol/L BUN 9 D (7-17) mg/dL Creatinine 0.62 L (0.7-1.0) mg/dL Estim Creat Clear Calc Not Reportable Estimated GFR > 60 (59 - ) Glucose 103 (65-110) mg/dL Calcium 8.9 (8.4-10.2) mg/dL Total Bilirubin 0.3 (0.2-1.3) mg/dL AST 24 (14-36) U/L ALT 16 (6-35) U/L Alkaline Phosphatase 93 (38-126) U/L Total Protein 7.3 (6.3-8.2) g/dL Albumin 3.9 (3.5-5.1) g/dL Lipase 52 (23-300) U/L Imaging Data Radiologist's impression: ITS Impressions Abdomen/Pelvis CT 05/16/25 15:51 IMPRESSION: No evidence of acute pathology in the abdomen and pelvis. Critical Care Time Critical Care Time Critical Care Time: No Discharge Plan Discharge Clinical Impression: Abdominal pain Qualifiers: Abdominal location: generalized Qualified Code(s): R10.84 - Generalized abdominal pain Patient Disposition: Home Condition: Stable Instructions: Abdominal Pain (ED) Additional Instructions: RETURN IF SYMPTOMS ARE WORSENING , CALL YOUR FAMILY PHYSICIAN FOR APPOINTMENT, TAKE TYLENOL NEEDED FOR ACHES AND PAIN, CONTINUE HOME MEDICATIONS. Patient Language: Korean Prescriptions: No Action escitalopram oxalate 20 mg tablet Follow-up/Referrals: Ziyad May MD [Primary Care Provider] -
--- OUTSIDE RECORDS SUMMARY | 2025-05-16 14:31 | XMS_ITS | Clinical Summary ---
Author Organization [facility] Address [facility] [place] [address] Care Team Providers Care Potato Pancake Frier Name Role Phone None, Provider MD Primary [...] 3:26 PM CDT Height 147.3 cm (4' 10) 08/01/2019 3:26 PM CDT Body Mass Index 30.31 08/01/2019 3:26 PM CDT Plan of Treatment Health Maintenance Due Date Last Done Comments Annual Physical 1984 Hepatitis C 1999 Hepatitis B Vaccines (1 of 3 - 19+ 3-dose series) 2000 DTaP, Tdap and Td Vaccines ( 2 - Td or Tdap) 03/01/2019 03/01/2009 Mammogram Screening 2021 11/20/2015 COVID-19 Vaccine (2023-2 5 season) 2024 Pneumococcal Vaccine: Pediat rics (0 to 5 Years) and At-Risk Patients (6 to 49 Years) Aged Out 03/01/2009 No longer eligi [...] DIAGNOSTIC LAKESHIA DIGI Routine 11/20/2015 3:28 PM NEW ACCOUNTS CLERK from Last 3 Months or Most Recently Relevant to Health Maintenance Results * MG DIAGNOSTIC LAKESHIA DIGI (11/20/2015 3:28 PM NEW ACCOUNTS CLERK) Anatomical Region Laterality Modality Breast Bilateral Mammography 11/20/2015 3:28 PM NEW ACCOUNTS CLERK 11/20/2015 3:28 PM NEW ACCOUNTS CLERK Narrative 11/22/2015 10:11 AM NEW ACCOUNTS CLERK AQUILES ROGERS ORDERING MD: YAYO ARREOLA ACCT: [id number] ADMIT/SERVICE DATE: 11/20/15 DISCHARGE DATE: : 1980 PT TYPE: REG CLI SEX: F ORD SITE: [facility] STUDY DATE REPORT # ORDER # EXT ORDER ID 11/20/15 [id number] PROCEDURE CODE PROCEDURE DESCRIPTION DXMAMDIGBI MG DIAGNOSTIC MAMMO DIGITAL BI CHART DOCUMENT DIVISION OF RADIOLOGY ACCESSION # EXAM DATE EXAM DESCRIPTION [id number] 11/20/2015 MG DIAGNOSTIC MAMMO DIGITAL BI IMAGING [...] A MG/RC 11/20/201503:28 P 11/20/2015 05:01 P JOB NO: [id number] DOC NO: [id number] CC: YAYO ARREOLA NP Procedure Note Marian Santoro MD - 09/02/2018 AQUILES ROGERS ORDERING MD: YAYO ARREOLA ANP ACCT: [id number] ADMIT/SERVICE DATE: 11/20/15 DISCHARGE DATE: : 1980 PT TYPE: REG CLI SEX: F ORD SITE: [facility] STUDY DATE REPORT # ORDER # EXT ORDER ID 11/20/15 [id number] PROCEDURE CODE PROCEDURE DESCRIPTION DXMAMDIGBI MG DIAGNOSTIC MAMMO DIGITAL BI CHART DOCUMENT DIVISION OF RADIOLOGY ACCESSION # EXAM DATE EXAM DESCRIPTION [id number] 11/20/2015 MG DIAGNOSTIC MAMMO DIGITAL BI IMAGING [...] A MG/RC 11/20/201503:28 P 11/20/2015 05:01 P JOB NO: [id number] DOC NO: [id number] CC: YAYO ARREOLA NP Yayo Arreola APNP MAMMO Final Res ult from Last 3 Months or Most Recently Relevant to Health Maintenance Insurance MEDICAID Advance Directives Documents on File Type Date Recorded Patient Litigation Secretary Expl anation Advance Directives and Living Will 09/29/2013 12:00 AM ADVANCED DIRECTIVES Advance Directives and Living Will 03/24/2013 12:00 AM ADVANCED DIRECTIVES Advance Directives and Living Will 02/24/2013 12:00 AM ADVANCED DIRECTIVES Advance Directives and Living Will 02/09/2013 12:00 AM ADVANCED DIRECTIVES Care Teams Potato Pancake Frier Relationship Specialty Start Date End Date None, Provider, PCP - General 08/01/19
--- OUTSIDE RECORDS SUMMARY | 2025-05-16 14:31 | XMS_ITS | Continuity of Care Document ---
Author Organization [facility] Address [address] [place] [address] [place] [address] Phone Care Team Providers Care Meteorological Engineer Name Role Phone Leeroy Greenberg DO Unavailable Unavailable Advance Directives Directive Yes / No Effective Date File Name No Information Encounters Encounter Description Practice Location Reason(s) For Visit Diagnoses Date Provider Providers Copied on Encounter [facility], [address], [place], [place], [address], [place] tel:[phone] [facility] No Information Dionicio Castañeda. [address] [place], [address], [place]. tel: [phone] Family History Family Member Type Diagnosis Age At Onset No Information Payers Payer name Insurance type Covered alliance party ID Authoriza tion(s) Medicaid [facility] [id number] Social History Type Description Quantity Date Captured [...]
[2025-05-16] MEDS: SODIUM CHLORIDE 0.9% IV 1,000 ML 999 ML IV CONT (14:41)
[2025-05-16 14:43] LABS: Hematocrit 34.5 % (37.0-47.0); Hemoglobin 11.5 g/dL (12.0-15.0); Immature Granulocyte Percent A 0.5 % (0-0.5); Lymphocytes Absolute Auto 0.90 K/mm3 (0.9-3.2); Mean Corpuscular HGB Conc 33.3 g/dl (32-36); Mean Corpuscular Hemoglobin 28.5 pg (26-34); Mean Corpuscular Volume 85.6 fl (80-100); Nucleated Red Blood Cells Absolute Auto 0.000 K/mm3 (0.0-0.012); Nucleated Red Blood Cells Perc 0.0 % (0.0-0.2); Platelet Count Result 289 k/mm3 (150-375); Red Blood Count 4.03 M/mm3 (4.2-5.4); White Blood Count 11.8 K/mm3 (4.5-10.0)
[2025-05-16 14:53] LABS: Alanine Aminotransferase 16 U/L (6-35); Albumin Level 3.9 g/dL (3.5-5.1); Alkaline Phosphatase 93 U/L (38-126); Anion Gap 8 mmol/L (4-12); Aspartate Amino Transferase 24 U/L (14-36); Bilirubin,Total 0.3 mg/dL (0.2-1.3); Blood Urea Nitrogen 9 mg/dL (7-17); Calcium 8.9 mg/dL (8.4-10.2); Carbon Dioxide 24 mmol/L (22-30); Chloride 105 mmol/L (98-107); Estimated Glomerular Filt Rate > 60; Glucose 103 mg/dL (65-110); Lipase 52 U/L (23-300); Potassium 3.6 mmol/L (3.4-5.0); Sodium 137 mmol/L (137-145); Total Protein 7.3 g/dL (6.3-8.2)
[2025-05-16] MEDS: ONDANSETRON INJ 4 MG/2 ML VIAL IV PUSH (16:21)
[2025-05-16] MEDS: HYDROmorphone HCL INJ (*CRX) 2 MG/ML VIAL 0.5 MG IV PUSH (16:24)
[2025-05-16 17:27] VITALS: BP 128/78; PULSE 69; RESP 20; TEMP 36.6; O2SAT 97
== END 2025-05-16 17:48 | disposition home or self-care (01) ==
PROVIDERS: Emergency Provider Emergency Medicine; PCP Internal Medicine
DX: R10.84 Generalized abdominal pain (principal)
CPT/HCPCS: 36415; 74177; 80053; 83690; 85025; 96361; 96374; 96375; 99284; J1171; J2405; J7030; Q9967